=== PATIENT | male | born 1970 | race Caucasian/White ===

== ENCOUNTER 2016-08-04 23:25 | Emergency (ER) | payer OTHER | END 2016-08-05 02:09 | disposition home or self-care (01) | LOC: ER 23:25 | DX: S61.451A Open bite of right hand, initial encounter (principal); W55.01XA Bitten by cat, initial encounter; Z88.8 Allergy status to other drugs, medicaments and biological substances | CPT/HCPCS: 90471; 90714; 99283; A9270-GY ==